=== PATIENT | male | born 1940 | race Caucasian/White ===

== ENCOUNTER 2018-08-28 08:26 | Outpatient (REF) | payer MEDICARE, BC, SELFPAY ==
[2018-08-28 21:27] LABS: Anion Gap 6.1 mmol/L (3-11); BUN 22 mg/dL (7-18); CO2 30.9 mmol/L (21.0-32.0); Calcium 9.1 mg/dL (8.5-10.1); Chloride 104 mmol/L (98-107); Cholesterol 98 mg/dL (50-200); Estimated GFR 53.67 (mL/min/1.73m2); Glucose 146 mg/dL (70-100); HDL Cholesterol 35 mg/dL (40-60); LDL CHOLESTEROL 43 mg/dL (<100); Potassium 4.5 mmol/L (3.5-5.1); Sodium 141 mmol/L (136-145); Triglyceride 145 mg/dL (30-150)
== END 2018-08-28 08:46 ==
LOC: NCHCN 08:26
PROVIDERS: PCP Internal Medicine; Visit Provider Internal Medicine
DX: E11.9 Type 2 diabetes mellitus without complications (principal); I10 Essential (primary) hypertension; I35.8 Other nonrheumatic aortic valve disorders
CPT/HCPCS: 80048; 80061; 83721

== ENCOUNTER 2019-03-25 11:58 | Outpatient (REF) | payer MEDICARE, BC, SELFPAY ==
[2019-03-25 22:01] LABS: COMMENT (LAB VIEW ONLY) 73.58 mg/dL
== END 2019-03-25 12:18 ==
LOC: NCHCN 11:58
PROVIDERS: PCP Internal Medicine; Visit Provider Internal Medicine
DX: E11.9 Type 2 diabetes mellitus without complications (principal)
CPT/HCPCS: 82043; 82570

== ENCOUNTER 2019-08-12 10:43 | Outpatient (REF) | payer MEDICARE, BC, SELFPAY ==
[2019-08-12 21:27] LABS: Anion Gap 6.5 mmol/L (3-11); BUN 24 mg/dL (7-18); CO2 31.5 mmol/L (21.0-32.0); CREATININE 1.44 mg/dL (0.70-1.30); Calcium 8.8 mg/dL (8.5-10.1); Chloride 103 mmol/L (98-107); Estimated GFR 47.57 (mL/min/1.73m2); Glucose 202 mg/dL (74-106); Potassium 4.4 mmol/L (3.5-5.1); Sodium 141 mmol/L (136-145)
== END 2019-08-12 11:03 ==
LOC: NCHCN 10:43
PROVIDERS: PCP Internal Medicine; Visit Provider Internal Medicine
DX: I10 Essential (primary) hypertension (principal)
CPT/HCPCS: 80048

== ENCOUNTER 2019-10-30 08:26 | Outpatient (REF) | payer MEDICARE, BC, SELFPAY ==
[2019-10-30 21:26] LABS: Anion Gap 11.7 mmol/L (3-11); BUN 70 mg/dL (7-18); CO2 26.3 mmol/L (21.0-32.0); Calcium 8.7 mg/dL (8.5-10.1); Chloride 103 mmol/L (98-107); Estimated GFR 11.08 (mL/min/1.73m2); Glucose 108 mg/dL (74-106); Potassium 4.3 mmol/L (3.5-5.1); Sodium 141 mmol/L (136-145)
[2019-10-30 21:32] LABS: Hemoglobin A1C 7.6 % (3.8-5.6)
[2019-10-30 21:36] LABS: CREATININE 5.09 mg/dL (0.70-1.30)
== END 2019-10-30 08:46 ==
LOC: NCHCN 08:26
PROVIDERS: PCP Internal Medicine; Visit Provider Internal Medicine
DX: E11.9 Type 2 diabetes mellitus without complications (principal); I10 Essential (primary) hypertension
CPT/HCPCS: 80048; 83036

== ENCOUNTER 2019-11-04 22:07 | Outpatient (REF) | payer MEDICARE, BC, SELFPAY ==
[2019-11-04 21:47] LABS: Abs Immature Grans 0.03 k/cumm (0.0-0.09); Absolute Basophil Count 0.01 k/cumm (0.0-0.2); Absolute Eosinophil Count 0.12 k/cumm (0.0-0.7); Absolute Lymphocyte Count 1.49 k/cumm (1.2-3.4); Absolute Monocyte Count 0.71 k/cumm (0.11-0.7); Absolute Neutrophil Count 5.66 k/cumm (1.2-6.7); Basophils % 0.1; Eosinophils % 1.5; HCT 30.7 % (40.0-50.0); HGB 10.4 g/dL (13.5-17.5); Immature Grans % 0.4 %; Lymphocytes % 18.6; Mean Corp. HGB Concentration 33.9 g/dL (32.0-36.0); Mean Corpuscular Hemoglobin 31.2 pg (27.0-33.0); Mean Corpuscular Volume 92.2 fL (80-95); Monocytes % 8.9; Neutrophils % 70.5; Platelet Count 202 x1000/uL (130-400); RBC 3.33 m/cumm (4.50-6.00); RBC Distribution Width 13.3 % (11.8-14.1); White Blood Cell Count 8.02 k/cumm (4.4-10.8)
[2019-11-04 21:54] LABS: Anion Gap 9.6 mmol/L (3-11); BUN 59 mg/dL (7-18); CO2 26.4 mmol/L (21.0-32.0); Calcium 8.3 mg/dL (8.5-10.1); Chloride 98 mmol/L (98-107); Estimated GFR 15.67 (mL/min/1.73m2); Glucose 302 mg/dL (74-106); Sodium 134 mmol/L (136-145)
[2019-11-04 22:12] LABS: CREATININE 3.77 mg/dL (0.70-1.30)
== END 2019-11-04 22:27 ==
LOC: NCHCN 22:07
PROVIDERS: PCP Internal Medicine; Visit Provider Internal Medicine
DX: I10 Essential (primary) hypertension (principal); E11.9 Type 2 diabetes mellitus without complications
CPT/HCPCS: 80048; 85025

== ENCOUNTER 2019-11-12 09:42 | Outpatient (REF) | payer MEDICARE, BC, SELFPAY ==
[2019-11-12 20:47] LABS: HCT 33.1 % (40.0-50.0); HGB 10.7 g/dL (13.5-17.5); Mean Corp. HGB Concentration 32.3 g/dL (32.0-36.0); Mean Corpuscular Hemoglobin 30.5 pg (27.0-33.0); Mean Corpuscular Volume 94.3 fL (80-95); Mean Platelet Volume 11.7 fL (8.0-11.0); Platelet Count 224 x1000/uL (130-400); RBC 3.51 m/cumm (4.50-6.00); RBC Distribution Width 13.4 % (11.8-14.1); White Blood Cell Count 7.51 k/cumm (4.4-10.8)
[2019-11-12 21:01] LABS: Iron 63 ug/dL (65-175)
[2019-11-12 21:18] LABS: Anion Gap 8.8 mmol/L (3-11); BUN 31 mg/dL (7-18); CO2 27.2 mmol/L (21.0-32.0); CREATININE 2.48 mg/dL (0.70-1.30); Calcium 8.6 mg/dL (8.5-10.1); Chloride 101 mmol/L (98-107); Ferritin 344 ng/mL (26-388); Glucose 242 mg/dL (74-106); Sodium 137 mmol/L (136-145)
== END 2019-11-12 10:02 ==
LOC: NCHCN 09:42
PROVIDERS: PCP Internal Medicine; Visit Provider Internal Medicine
DX: D64.9 Anemia, unspecified (principal); N18.3 Chronic kidney disease, stage 3 (moderate)
CPT/HCPCS: 80048; 85027; 82728; 83540

== ENCOUNTER 2019-12-13 11:24 | Outpatient (REF) | payer MEDICARE, BC, SELFPAY ==
[2019-12-13 21:25] LABS: Anion Gap 6.9 mmol/L (3-11); BUN 28 mg/dL (7-18); CO2 28.1 mmol/L (21.0-32.0); CREATININE 2.01 mg/dL (0.70-1.30); Calcium 8.4 mg/dL (8.5-10.1); Chloride 102 mmol/L (98-107); Estimated GFR 32.37 (mL/min/1.73m2); Glucose 336 mg/dL (74-106); Potassium 4.5 mmol/L (3.5-5.1); Sodium 137 mmol/L (136-145)
== END 2019-12-13 11:44 ==
LOC: NCHCN 11:24
PROVIDERS: PCP Internal Medicine; Visit Provider Internal Medicine
DX: E11.9 Type 2 diabetes mellitus without complications (principal)
CPT/HCPCS: 80048

== ENCOUNTER 2020-01-15 08:07 | Outpatient (REF) | payer MEDICARE, BC, SELFPAY ==
[2020-01-15 19:46] LABS: Anion Gap 10.8 mmol/L (3-11); BUN 36 mg/dL (7-18); CO2 25.2 mmol/L (21.0-32.0); CREATININE 1.95 mg/dL (0.70-1.30); Calcium 9.1 mg/dL (8.5-10.1); Chloride 99 mmol/L (98-107); Estimated GFR 33.53 (mL/min/1.73m2); Glucose 223 mg/dL (74-106); Potassium 4.7 mmol/L (3.5-5.1); Sodium 135 mmol/L (136-145)
[2020-01-17 08:56] LABS: PSA, Screening 3.8 ng/mL (0.0-6.5)
== END 2020-01-15 08:27 ==
LOC: NCHCN 08:07
PROVIDERS: PCP Internal Medicine; Visit Provider Internal Medicine
DX: N40.0 Benign prostatic hyperplasia without lower urinary tract symptoms (principal)
CPT/HCPCS: 80048; 84153

== ENCOUNTER 2020-02-26 08:25 | Outpatient (REF) | payer MEDICARE, BC, SELFPAY ==
[2020-02-26 22:29] LABS: Anion Gap 8.7 mmol/L (3-11); BUN 30 mg/dL (7-18); CO2 27.3 mmol/L (21.0-32.0); CREATININE 1.97 mg/dL (0.70-1.30); Chloride 106 mmol/L (98-107); Estimated GFR 33.13 (mL/min/1.73m2); Glucose 241 mg/dL (74-106); Potassium 4.6 mmol/L (3.5-5.1); Sodium 142 mmol/L (136-145)
[2020-02-26 22:35] LABS: Calcium 8.7 mg/dL (8.5-10.1)
== END 2020-02-26 08:45 ==
LOC: NCHCN 08:25
PROVIDERS: Urology; PCP Internal Medicine; Visit Provider Internal Medicine
DX: N40.1 Benign prostatic hyperplasia with lower urinary tract symptoms (principal); I10 Essential (primary) hypertension
CPT/HCPCS: 80048

== ENCOUNTER 2020-04-10 13:37 | Outpatient (REF) | payer MEDICARE, BC, SELFPAY ==
[2020-04-10 21:05] LABS: Abs Immature Grans 0.06 10^3/uL (0.0-0.06); Absolute Eosinophil Count 0.04 10^3/uL (0.0-0.7); Absolute Lymphocyte Count 1.62 10^3/uL (1.2-3.4); Absolute Monocyte Count 1.06 10^3/uL (0.1-0.8); Basophils % 0.2; Eosinophils % 0.3; HCT 37.4 % (40.0-50.0); Immature Grans % 0.5; Lymphocytes % 12.7; MCH 30.1 pg (27.0-33.0); MCHC 32.1 % (32.0-36.0); MCV 93.7 fL (80-95); MPV 12.5 fL (8.0-11.0); Monocytes % 8.3; Nucleated RBC 0 %; Platelet Count 156 10^3/uL (130-400); RBC 3.99 10^6/uL (4.36-5.78); RDW 13.2 % (11.8-14.1); RDW-SD 45.3 fL; WBC 12.76 10^3/uL (4.4-10.8)
[2020-04-10 21:12] LABS: Absolute Basophil Count 0.03 10^3/uL (0.0-0.2); Absolute Neutrophil Count 9.95 10^3/uL (1.2-6.7)
[2020-04-10 21:23] LABS: Anion Gap 6.1 mmol/L (3-11); BUN 45 mg/dL (7-18); CO2 24.9 mmol/L (21.0-32.0); CREATININE 2.18 mg/dL (0.70-1.30); Calcium 8.7 mg/dL (8.5-10.1); Chloride 99 mmol/L (98-107); Glucose 292 mg/dL (74-106); Potassium 4.4 mmol/L (3.5-5.1); Sodium 130 mmol/L (136-145)
[2020-04-10 21:37] LABS: Hemoglobin A1C 7.4 % (<5.7)
== END 2020-04-10 13:57 ==
LOC: NCHCN 13:37
PROVIDERS: PCP Internal Medicine; Visit Provider Internal Medicine
DX: D64.9 Anemia, unspecified (principal); E11.9 Type 2 diabetes mellitus without complications; I10 Essential (primary) hypertension; N18.30 Chronic kidney disease, stage 3 unspecified
CPT/HCPCS: 80048; 83036; 85025

== ENCOUNTER 2020-07-10 10:55 | Outpatient (REF) | payer MEDICARE, BC, SELFPAY ==
[2020-07-10 14:24] LABS: Anion Gap 9.1 mmol/L (3-11); BUN 32 mg/dL (7-18); CO2 24.9 mmol/L (21.0-32.0); CREATININE 2.04 mg/dL (0.70-1.30); Calcium 8.5 mg/dL (8.5-10.1); Calculated LDL 20 mg/dL (<100); Chloride 102 mmol/L (98-107); Cholesterol 79 mg/dL (<200); Estimated GFR 31.74 (mL/min/1.73m2); Glucose 218 mg/dL (74-106); HDL Cholesterol 35 mg/dL (40-60); Potassium 4.7 mmol/L (3.5-5.1); Sodium 136 mmol/L (136-145); Triglyceride 124 mg/dL (<150)
[2020-07-10 14:32] LABS: Hemoglobin A1C 7.5 % (<5.7)
[2020-07-10 15:24] LABS: COMMENT (LAB VIEW ONLY) 54.42 mg/dL; Microalb ug/mg Crea 377.8 ug/mg Cr
== END 2020-07-10 11:15 ==
LOC: NCHCN 10:55
PROVIDERS: PCP Internal Medicine; Visit Provider Internal Medicine
DX: E11.9 Type 2 diabetes mellitus without complications (principal); I10 Essential (primary) hypertension
CPT/HCPCS: 80048; 80061; 82043; 82570; 83036

== ENCOUNTER 2020-10-16 13:18 | Outpatient (REF) | payer MEDICARE, BC, SELFPAY ==
[2020-10-16 13:05] LABS: Anion Gap 7.4 mmol/L (3-11); BUN 39 mg/dL (7-18); CO2 26.6 mmol/L (21.0-32.0); CREATININE 2.3 mg/dL (0.70-1.30); Calcium 8.6 mg/dL (8.5-10.1); Chloride 107 mmol/L (98-107); Estimated GFR 27.64 (mL/min/1.73m2); Glucose 237 mg/dL (74-106); Potassium 4.7 mmol/L (3.5-5.1); Sodium 141 mmol/L (136-145)
[2020-10-16 13:10] LABS: Hemoglobin A1C 7.1 % (<5.7)
== END 2020-10-16 13:19 | disposition home or self-care (01) ==
LOC: NCHCN 13:18
PROVIDERS: PCP Internal Medicine; Visit Provider Internal Medicine
DX: N18.30 Chronic kidney disease, stage 3 unspecified (principal); E11.9 Type 2 diabetes mellitus without complications
CPT/HCPCS: 80048; 83036

== ENCOUNTER 2020-12-09 16:47 | Outpatient (REF) | payer MEDICARE, BC, SELFPAY ==
[2020-12-09 14:56] LABS: HCT 36.5 % (40.0-50.0); HGB 11.7 g/dL (13.5-17.5); MCH 30.6 pg (27.0-33.0); MCHC 32.1 % (32.0-36.0); MCV 95.5 fL (80-95); MPV 11.6 fL (8.0-11.0); Platelet Count 189 10^3/uL (130-400); RBC 3.82 10^6/uL (4.36-5.78); RDW 12.7 % (11.8-14.1); RDW-SD 44.3 fL; WBC 6.45 10^3/uL (4.4-10.8)
[2020-12-09 15:26] LABS: Iron 63 ug/dL (65-175); Total Iron Binding Capacity 288 ug/dL (250-450); Transferrin Sat 22 % (20-55)
[2020-12-09 16:07] LABS: ALT 21 U/L (16-63); AST 9 U/L (15-37); Albumin 3.6 g/dL (3.4-5.0); Alkaline Phosphatase 72 U/L (46-116); Anion Gap 7.6 mmol/L (3-11); BUN 36 mg/dL (7-18); Bilirubin, Total 0.4 mg/dL (0.2-1.0); CO2 27.4 mmol/L (21.0-32.0); CREATININE 2.3 mg/dL (0.70-1.30); Calcium 8.6 mg/dL (8.5-10.1); Chloride 106 mmol/L (98-107); Estimated GFR 27.64 (mL/min/1.73m2); Ferritin 139 ng/mL (26-388); Glucose 118 mg/dL (74-106); Magnesium 2.2 mg/dL (1.8-2.4); Potassium 4.7 mmol/L (3.5-5.1); Sodium 141 mmol/L (136-145); TSH 0.72 uIU/mL (0.36-3.74); Total Protein 6.6 g/dL (6.4-8.2); Vitamin B12 210 pg/mL (193-986)
[2020-12-09 16:21] LABS: PHOSPHORUS 3.5 mg/dL (2.6-4.7)
[2020-12-10 01:18] LABS: Vitamin D 25 Total 30.1 ng/mL (30-100)
[2020-12-10 09:39] LABS: Parathyroid Hormone,Intact 69 pg/mL (19-88)
== END 2020-12-09 16:48 | disposition home or self-care (01) ==
LOC: NCHCN 16:47
PROVIDERS: PCP Internal Medicine; Visit Provider Internal Medicine
DX: D64.9 Anemia, unspecified (principal); R53.83 Other fatigue; R25.2 Cramp and spasm; N18.30 Chronic kidney disease, stage 3 unspecified; Z86.39 Personal history of other endocrine, nutritional and metabolic disease
CPT/HCPCS: 80053; 82306; 85027; 82607; 82728; 83540; 83550; 83735; 83970; 84100; 84443

== ENCOUNTER 2021-02-19 16:50 | Outpatient (REF) | payer MEDICARE, BC, SELFPAY ==
[2021-02-19 18:47] LABS: ALT 23 U/L (16-63); AST 9 U/L (15-37); Albumin 4.1 g/dL (3.4-5.0); Alkaline Phosphatase 84 U/L (46-116); Anion Gap 7.3 mmol/L (3-11); BUN 40 mg/dL (7-18); Bilirubin, Total 0.5 mg/dL (0.2-1.0); CO2 27.7 mmol/L (21.0-32.0); CREATININE 2.6 mg/dL (0.70-1.30); Chloride 103 mmol/L (98-107); Estimated GFR 23.99 (mL/min/1.73m2); Glucose 155 mg/dL (74-106); Potassium 4.5 mmol/L (3.5-5.1); Sodium 138 mmol/L (136-145); Total Protein 7.2 g/dL (6.4-8.2)
== END 2021-02-20 16:51 | disposition home or self-care (01) ==
LOC: NCHCN 16:50
PROVIDERS: PCP Internal Medicine; Visit Provider Internal Medicine
DX: N18.30 Chronic kidney disease, stage 3 unspecified (principal)
CPT/HCPCS: 80053

== ENCOUNTER 2021-04-23 20:36 | Outpatient (REF) | payer MEDICARE, BC, SELFPAY ==
[2021-04-23 20:41] LABS: BUN 40 mg/dL (7-18); CREATININE 2.1 mg/dL (0.70-1.30); Calcium 9.2 mg/dL (8.5-10.1); Chloride 105 mmol/L (98-107); Estimated GFR 30.62 (mL/min/1.73m2); Glucose 107 mg/dL (74-106); Potassium 5.3 mmol/L (3.5-5.1); Sodium 140 mmol/L (136-145)
== END 2021-04-23 20:37 | disposition home or self-care (01) ==
LOC: NCHCN 20:36
PROVIDERS: PCP Internal Medicine; Visit Provider Internal Medicine
DX: N18.30 Chronic kidney disease, stage 3 unspecified (principal)
CPT/HCPCS: 80048

== ENCOUNTER 2021-10-04 18:23 | Outpatient (REF) | payer MEDICARE, BC, SELFPAY ==
[2021-10-04 17:34] LABS: Abs Immature Grans 0.02 10^3/uL (0.0-0.06); Absolute Basophil Count 0.02 10^3/uL (0.0-0.2); Absolute Eosinophil Count 0.05 10^3/uL (0.0-0.7); Absolute Lymphocyte Count 1.67 10^3/uL (1.2-3.4); Absolute Monocyte Count 0.49 10^3/uL (0.1-0.8); Absolute Neutrophil Count 3.87 10^3/uL (1.2-6.7); Basophils % 0.3; Eosinophils % 0.8; HCT 37.6 % (40.0-50.0); HGB 11.7 g/dL (13.5-17.5); Immature Grans % 0.3; Lymphocytes % 27.3; MCH 29.8 pg (27.0-33.0); MCHC 31.1 % (32.0-36.0); MCV 95.7 fL (80-95); MPV 12.1 fL (8.0-11.0); Neutrophils % 63.3; Nucleated RBC 0 %; Platelet Count 184 10^3/uL (130-400); RBC 3.93 10^6/uL (4.36-5.78); RDW 12.8 % (11.8-14.1); RDW-SD 45.1 fL; WBC 6.12 10^3/uL (4.4-10.8)
[2021-10-04 17:46] LABS: COMMENT (LAB VIEW ONLY) 40.41 mg/dL; Microalb ug/mg Crea 156.4 ug/mg Cr
[2021-10-04 19:28] LABS: Anion Gap 6.9 mmol/L (3-11); BUN 39 mg/dL (7-18); CO2 26.1 mmol/L (21.0-32.0); Calcium 8.5 mg/dL (8.5-10.1); Chloride 105 mmol/L (98-107); Estimated GFR 32.39 (mL/min/1.73m2); Glucose 146 mg/dL (74-106); Potassium 4.7 mmol/L (3.5-5.1); Sodium 138 mmol/L (136-145)
== END 2021-10-04 18:24 | disposition home or self-care (01) ==
LOC: NCHCN 18:23
PROVIDERS: PCP Internal Medicine; Visit Provider Internal Medicine
DX: E11.9 Type 2 diabetes mellitus without complications (principal); N18.30 Chronic kidney disease, stage 3 unspecified
CPT/HCPCS: 80048; 82043; 82570; 83036; 85025

== ENCOUNTER 2022-04-08 16:37 | Outpatient (REF) | payer MEDICARE, BC, SELFPAY ==
[2022-04-08 17:39] LABS: Abs Immature Grans 0.02 10^3/uL (0.0-0.06); Absolute Basophil Count 0.02 10^3/uL (0.0-0.2); Absolute Eosinophil Count 0.07 10^3/uL (0.0-0.7); Absolute Lymphocyte Count 1.96 10^3/uL (1.2-3.4); Absolute Monocyte Count 0.62 10^3/uL (0.1-0.8); Absolute Neutrophil Count 5.13 10^3/uL (1.2-6.7); Basophils % 0.3; Eosinophils % 0.9; HCT 38.4 % (40.0-50.0); HGB 12.4 g/dL (13.5-17.5); Immature Grans % 0.3; Lymphocytes % 25.1; MCH 30.7 pg (27.0-33.0); MCHC 32.3 % (32.0-36.0); MCV 95 fL (80-95); MPV 12.1 fL (8.0-11.0); Monocytes % 7.9; Neutrophils % 65.5; Platelet Count 235 10^3/uL (130-400); RBC 4.04 10^6/uL (4.36-5.78); RDW-SD 45.2 fL; WBC 7.82 10^3/uL (4.4-10.8)
[2022-04-08 17:48] LABS: Anion Gap 10.2 mmol/L (3-11); BUN 50 mg/dL (7-18); CO2 24.8 mmol/L (21.0-32.0); CREATININE 2.6 mg/dL (0.70-1.30); Calcium 8.9 mg/dL (8.5-10.1); Chloride 101 mmol/L (98-107); Estimated GFR 24.17 (mL/min/1.73m2); Glucose 194 mg/dL (74-106); Potassium 4.5 mmol/L (3.5-5.1); Sodium 136 mmol/L (136-145)
[2022-04-08 17:55] LABS: Hemoglobin A1C 6.4 % (<5.7)
== END 2022-04-08 16:38 | disposition home or self-care (01) ==
LOC: NCHCN 16:37
PROVIDERS: PCP Internal Medicine; Visit Provider Internal Medicine
DX: E11.9 Type 2 diabetes mellitus without complications (principal)
CPT/HCPCS: 80048; 83036; 85025

== ENCOUNTER 2022-07-11 17:09 | Outpatient (REF) | payer MEDICARE, BC, SELFPAY ==
[2022-07-11 18:36] LABS: Anion Gap 7.6 mmol/L (3-11); BUN 36 mg/dL (7-18); CO2 27.4 mmol/L (21.0-32.0); CREATININE 2.2 mg/dL (0.70-1.30); Calcium 8.9 mg/dL (8.5-10.1); Chloride 105 mmol/L (98-107); Estimated GFR 29.54 (mL/min/1.73m2); Glucose 128 mg/dL (74-106); Potassium 4.6 mmol/L (3.5-5.1); Sodium 140 mmol/L (136-145)
[2022-07-12 19:02] LABS: Estimated Average Glucose 137 mg/dL; Hemoglobin A1C 6.4 % (<5.7)
[2022-07-12 19:58] LABS: PSA, Screening 2.8 ng/mL (<=6.5)
== END 2022-07-11 17:10 | disposition home or self-care (01) ==
LOC: NCHCN 17:09
PROVIDERS: PCP Internal Medicine; Visit Provider Internal Medicine
DX: E11.9 Type 2 diabetes mellitus without complications (principal); N13.30 Unspecified hydronephrosis; D64.9 Anemia, unspecified; Z12.5 Encounter for screening for malignant neoplasm of prostate
CPT/HCPCS: 80048; 84153; 83036

== ENCOUNTER 2022-09-07 11:52 | Outpatient (REF) | payer MEDICARE, BC, SELFPAY | END 2022-09-07 11:53 | disposition home or self-care (01) | LOC: LBN 11:52 | PROVIDERS: PCP Internal Medicine; Visit Provider Urology | DX: N40.0 Benign prostatic hyperplasia without lower urinary tract symptoms (principal); R82.998 Other abnormal findings in urine | CPT/HCPCS: 87077; 87086; 87186 ==

== ENCOUNTER 2022-11-07 18:36 | Outpatient (REF) | payer MEDICARE, BC, SELFPAY ==
[2022-11-07 17:23] LABS: Hemoglobin A1C 6.5 % (<5.7)
[2022-11-07 17:29] LABS: BUN 39 mg/dL (7-18); CREATININE 2.1 mg/dL (0.70-1.30); Calcium 8.9 mg/dL (8.5-10.1); Chloride 106 mmol/L (98-107); Estimated GFR 31.23 (mL/min/1.73m2); Glucose 169 mg/dL (74-106); Sodium 141 mmol/L (136-145)
[2022-11-07 18:28] LABS: COMMENT (LAB VIEW ONLY) 55.06 mg/dL
[2022-11-07 18:30] LABS: Microalb ug/mg Crea 908.8 ug/mg Cr
== END 2022-11-07 18:37 | disposition home or self-care (01) ==
LOC: NCHCN 18:36
PROVIDERS: PCP Internal Medicine; Visit Provider Internal Medicine
DX: E11.9 Type 2 diabetes mellitus without complications (principal); I10 Essential (primary) hypertension
CPT/HCPCS: 80048; 82043; 82570; 83036

== ENCOUNTER 2023-02-17 09:40 | Outpatient (REF) | payer MEDICARE, BC, SELFPAY ==
[2023-02-17 15:35] LABS: HCT 42.5 % (40.0-50.0); HGB 13.6 g/dL (13.5-17.5); MCH 30.6 pg (27.0-33.0); MCV 96 fL (80-95); MPV 11.2 fL (8.0-11.0); Platelet Count 204 10^3/uL (130-400); RBC 4.44 10^6/uL (4.36-5.78); RDW 13.2 % (11.8-14.1); RDW-SD 47.1 fL; WBC 6.48 10^3/uL (4.4-10.8)
[2023-02-17 16:16] LABS: BUN 28 mg/dL (7-18); Calcium 9.3 mg/dL (8.5-10.1); Chloride 103 mmol/L (98-107); Estimated GFR 33.12 (mL/min/1.73m2); Ferritin 80 ng/mL (26-388); Glucose 89 mg/dL (74-106); Potassium 4.2 mmol/L (3.5-5.1); Sodium 139 mmol/L (136-145); Vitamin B12 1113 pg/mL (193-986)
[2023-02-17 16:35] LABS: Hemoglobin A1C 6.4 % (<5.7)
== END 2023-02-17 09:41 | disposition home or self-care (01) ==
LOC: NCHCN 09:40
PROVIDERS: PCP Internal Medicine; Visit Provider Internal Medicine
DX: D64.9 Anemia, unspecified (principal); E11.9 Type 2 diabetes mellitus without complications; N18.30 Chronic kidney disease, stage 3 unspecified; Z79.899 Other long term (current) drug therapy
CPT/HCPCS: 80048; 85027; 82607; 82728; 83036

== ENCOUNTER 2023-06-28 16:23 | Outpatient (REF) | payer MEDICARE, BC, SELFPAY ==
[2023-06-28 15:58] LABS: BUN 37 mg/dL (7-18); Chloride 104 mmol/L (98-107); Estimated GFR 32.91 (mL/min/1.73m2); Glucose 134 mg/dL (74-106); Potassium 4.6 mmol/L (3.5-5.1); Sodium 137 mmol/L (136-145)
[2023-06-28 16:10] LABS: Hemoglobin A1C 6.4 % (<5.7)
== END 2023-06-28 16:24 | disposition home or self-care (01) ==
LOC: NCHCN 16:23
PROVIDERS: PCP Internal Medicine; Visit Provider Internal Medicine
DX: E11.9 Type 2 diabetes mellitus without complications (principal); I10 Essential (primary) hypertension
CPT/HCPCS: 80048; 83036

== ENCOUNTER 2023-12-11 15:27 | Outpatient (REF) | payer MEDICARE, BC, SELFPAY ==
[2023-12-11 15:06] LABS: HCT 43.6 % (40.0-50.0); HGB 14.1 g/dL (13.5-17.5); MCHC 32.3 % (32.0-36.0); MCV 99 fL (80-95); MPV 11.8 fL (8.0-11.0); Platelet Count 166 10^3/uL (130-400); RBC 4.41 10^6/uL (4.36-5.78); RDW 12.2 % (11.8-14.1); RDW-SD 44.5 fL; WBC 5.12 10^3/uL (4.4-10.8)
[2023-12-11 15:20] LABS: Anion Gap 7.2 mmol/L (3-11); BUN 30 mg/dL (7-18); CO2 27.8 mmol/L (21.0-32.0); CREATININE 2.2 mg/dL (0.70-1.30); Calcium 9.1 mg/dL (8.5-10.1); Chloride 105 mmol/L (98-107); Estimated GFR 29.36 (mL/min/1.73m2); Glucose 99 mg/dL (74-106); Potassium 5.2 mmol/L (3.5-5.1); Sodium 140 mmol/L (136-145)
[2023-12-11 16:10] LABS: Hemoglobin A1C 6.2 % (<5.7)
== END 2023-12-11 15:28 | disposition home or self-care (01) ==
LOC: NCHCN 15:27
PROVIDERS: PCP Internal Medicine; Visit Provider Internal Medicine
DX: E11.9 Type 2 diabetes mellitus without complications (principal); N18.30 Chronic kidney disease, stage 3 unspecified
CPT/HCPCS: 80048; 85027; 83036

== ENCOUNTER 2024-01-03 19:37 | Outpatient (REF) | payer MEDICARE, BC, SELFPAY ==
[2024-01-03 16:23] LABS: Bilirubin Negative (Negative); Blood Small (Negative); Clarity Cloudy (Clear); Glucose 500 mg/dL (Negative); Ketones Negative (Negative); Leukocyte Esterase Moderate (Negative); Nitrite Positive (Negative); Urobilinogen 0.2 mg/dL (Up to 0.2); pH 5.5 (5-8)
[2024-01-03 16:29] LABS: Bacteria Many HPF (Negative); C & S Indicated? Yes; WBC >50 HPF (0-5)
[2024-01-03 17:15] LABS: Microalb ug/mg Crea 267.7 ug/mg Cr
== END 2024-01-03 19:38 | disposition home or self-care (01) ==
LOC: LBN 19:37
PROVIDERS: Internal Medicine; PCP Internal Medicine; Visit Provider Urology
DX: R33.9 Retention of urine, unspecified (principal); E11.9 Type 2 diabetes mellitus without complications; B96.89 Other specified bacterial agents as the cause of diseases classified elsewhere
CPT/HCPCS: 87077; 81003; 81015; 82043; 82570; 87086; 87186

== ENCOUNTER 2024-07-05 20:13 | Outpatient (REF) | payer MEDICARE, BC, SELFPAY ==
[2024-07-05 14:26] LABS: HCT 46.2 % (40.0-50.0); HGB 15.2 g/dL (13.5-17.5); MCH 31.7 pg (27.0-33.0); MCHC 32.9 % (32.0-36.0); MCV 97 fL (80-95); MPV 11.8 fL (8.0-11.0); Platelet Count 181 10^3/uL (130-400); RBC 4.79 10^6/uL (4.36-5.78); RDW 12.6 % (11.8-14.1); RDW-SD 45.1 fL; WBC 5.63 10^3/uL (4.4-10.8)
[2024-07-05 14:50] LABS: BUN 27 mg/dL (7-18); CREATININE 1.9 mg/dL (0.70-1.30); Calcium 9.1 mg/dL (8.5-10.1); Chloride 107 mmol/L (98-107); Estimated GFR 34.79 (mL/min/1.73m2); Glucose 120 mg/dL (74-106); PHOSPHORUS 3.3 mg/dL (2.6-4.7); Potassium 4.6 mmol/L (3.5-5.1); Sodium 143 mmol/L (136-145)
[2024-07-05 14:57] LABS: Hemoglobin A1C 6.6 % (<5.7)
[2024-07-05 15:33] LABS: Vitamin D 25 Total 13.5 ng/mL (30-100)
== END 2024-07-05 20:14 | disposition home or self-care (01) ==
LOC: NCHCN 20:13
PROVIDERS: PCP Internal Medicine; Visit Provider Internal Medicine
DX: E11.9 Type 2 diabetes mellitus without complications (principal); N18.30 Chronic kidney disease, stage 3 unspecified
CPT/HCPCS: 80048; 82306; 85027; 83036; 83970; 84100

== ENCOUNTER 2024-10-03 21:19 | Outpatient (REF) | payer MEDICARE, BC, SELFPAY ==
[2024-10-03 17:30] LABS: Anion Gap 6.8 mmol/L (3-11); BUN 29 mg/dL (7-18); CO2 27.2 mmol/L (21.0-32.0); CREATININE 1.9 mg/dL (0.70-1.30); Calcium 8.9 mg/dL (8.5-10.1); Chloride 108 mmol/L (98-107); Estimated GFR 34.79 (mL/min/1.73m2); Glucose 171 mg/dL (74-106); Sodium 142 mmol/L (136-145); Vitamin D 25 Total 37 ng/mL (30-100)
== END 2024-10-03 21:20 | disposition home or self-care (01) ==
LOC: NCHCN 21:19
PROVIDERS: PCP Internal Medicine; Visit Provider Internal Medicine
DX: E55.9 Vitamin D deficiency, unspecified (principal)
CPT/HCPCS: 80048; 82306

== ENCOUNTER 2025-01-10 14:43 | Outpatient (REF) | payer MEDICARE, BC, SELFPAY ==
[2025-01-10 21:29] LABS: COMMENT (LAB VIEW ONLY) 55.09 mg/dL; Microalb ug/mg Crea 377.4 ug/mg Cr
== END 2025-01-10 14:44 | disposition home or self-care (01) ==
LOC: NCHCN 14:43
PROVIDERS: PCP Internal Medicine; Visit Provider Internal Medicine
DX: E11.9 Type 2 diabetes mellitus without complications (principal)
CPT/HCPCS: 82043; 82570

== ENCOUNTER 2025-04-07 08:03 | Outpatient (REF) | payer MEDICARE, BC, SELFPAY ==
[2025-04-07 15:21] LABS: ALT 25 U/L (16-63); AST 20 U/L (15-37); Albumin 4.0 g/dL (3.4-5.0); Alkaline Phosphatase 70 U/L (46-116); Anion Gap 8.9 mmol/L (3-11); BUN 31 mg/dL (7-18); Bilirubin, Total 0.8 mg/dL (0.2-1.0); CO2 28.1 mmol/L (21.0-32.0); Calcium 8.9 mg/dL (8.5-10.1); Calculated LDL 31 mg/dL (<100); Chloride 105 mmol/L (98-107); Cholesterol 88 mg/dL (<200); Estimated GFR 34.57 (mL/min/1.73m2); Glucose 114 mg/dL (74-106); HDL Cholesterol 43 mg/dL (>or=40); Potassium 4.7 mmol/L (3.5-5.1); Sodium 142 mmol/L (136-145); Total Protein 7.2 g/dL (6.4-8.2); Triglyceride 73 mg/dL (<150); Vitamin B12 343 pg/mL (193-986)
[2025-04-07 15:32] LABS: Hemoglobin A1C 6.5 % (<5.7)
== END 2025-04-07 08:04 | disposition home or self-care (01) ==
LOC: NCHCN 08:03
PROVIDERS: PCP Internal Medicine; Visit Provider Internal Medicine
DX: I10 Essential (primary) hypertension (principal); E11.9 Type 2 diabetes mellitus without complications
CPT/HCPCS: 80053; 80061; 82607; 83036